=== PATIENT | male | born 1955 | race Caucasian/White ===

== ENCOUNTER 2018-10-14 11:44 | Emergency (ER) | payer MEDICAID ==
[~2018-10-14] VITALS: Ht 172.7 cm; Wt 74.8 kg
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
--- NOTE | 2018-10-14 11:55 | NUR ---
DR ABDUL AT BEDSIDE
[2018-10-14] MEDS ORDERED: LIDOCAINE 1%-EPI 1:100,000 50 ML VIAL IJ ONE (12:00)
[2018-10-14] MEDS ORDERED: LIDOCAINE 1%-EPI 1:100,000 20 ML VIAL ONE (12:08)
--- NOTE | 2018-10-14 13:08 | NUR ---
CALLED [facility] FOR TRANSPORT ETA OF 1345 WAS GIVEN. TRIP#[id number]
--- NOTE | 2018-10-14 13:32 | NUR ---
Patient discharged to [facility] in stable condition. Pt will be brought back to [facility]. Report given to Chasity. Written and verbal after care instructions given. EMT's verbalizes understanding of instruction.
[2018-10-14 13:50] VITALS: BP 108/67
== END 2018-10-14 13:51 ==
LOC: ER 11:44
DX: S01.81XA Laceration without foreign body of other part of head, initial encounter (principal); W22.8XXA Striking against or struck by other objects, initial encounter; Y93.89 Activity, other specified; Y92.89 Other specified places as the place of occurrence of the external cause; Y99.8 Other external cause status; G82.20 Paraplegia, unspecified
CPT/HCPCS: 12014; 70450; 99285; A6403; J3490 ×2